=== PATIENT | male | born 1960 | race Two or more races ===

== ENCOUNTER 2019-09-17 06:12 | Emergency (ER) | payer OTHER ==
[~2019-09-17] VITALS: Ht 165.1 cm; Wt 87.1 kg
[2019-09-17 06:17] VITALS: BP 140/81
--- NOTE | 2019-09-17 06:23 | NUR ---
SELENE HANNON MD, FAC
--- NOTE | 2019-09-17 06:29 | NUR ---
Patient does not wish to proceed with medical care recommended by Dr. Desouza. Patient given information related to possible complications, up to and including , which could occur as a result of leaving the hospital at this time. Patient verbalizes understanding of risks involved due to leaving against medical advice. Patient has signed AMA form.
--- NOTE | 2019-09-17 06:29 | NUR ---
PATIENT REQUESTS TO LEAVE AGAINST MEDICAL ADVICE.
== END 2019-09-17 06:46 | disposition left against medical advice (07) ==
LOC: ER 06:12
DX: R06.02 Shortness of breath (principal); J44.9 Chronic obstructive pulmonary disease, unspecified; I11.0 Hypertensive heart disease with heart failure; I50.9 Heart failure, unspecified
CPT/HCPCS: 71045-TC